=== PATIENT | female | born 1965 ===

== ENCOUNTER → 2017-02-17 | Outpatient (CLI) | payer SELFPAY | LOC: LAB SHORT 16:30 | DX: R35.0 Frequency of micturition (principal) | CPT/HCPCS: 87077; 87086; 87186 ==

== ENCOUNTER → 2019-12-07 | Outpatient (CLI) | payer SELFPAY | END | disposition home or self-care (01) | LOC: LAB 11:20 → LAB SHORT 11:20 | DX: N39.0 Urinary tract infection, site not specified (principal) | CPT/HCPCS: 87086 ==

== ENCOUNTER → 2021-08-08 | Outpatient (CLI) | payer OTHER | END | disposition home or self-care (01) | LOC: LAB 11:30 → LAB SHORT 11:30 | DX: N39.0 Urinary tract infection, site not specified (principal) | CPT/HCPCS: 87077; 87086; 87186 ==

== ENCOUNTER 2022-01-23 09:59 | Day surgery (SDC) | payer OTHER ==
[~2022-01-23] VITALS: Ht 162.6 cm; Wt 50.2 kg
[2022-01-23] MEDS ORDERED: BUPROPION XL450 MG (10:20)
[2022-01-23] MEDS ORDERED: ONDA4ODT (10:20)
[2022-01-23] MEDS ORDERED: RIZATRIPTAN5 M1 (10:21)
[2022-01-23] MEDS ORDERED: ACYCLOVIR5 GM (10:21)
== END 2022-01-23 13:07 | disposition home or self-care (01) ==
LOC: ORSCSDS 09:59
PROVIDERS: Internal Medicine Gastroenterology
PROC: 0DBP8ZX Excision of Rectum, Via Natural or Artificial Opening Endoscopic, Diagnostic (ICD-10-PCS; principal; 2022-01-23 11:15)
PROC: 0DBL8ZX Excision of Transverse Colon, Via Natural or Artificial Opening Endoscopic, Diagnostic (ICD-10-PCS; principal; 2022-01-23 11:15)
DX: Z12.11 Encounter for screening for malignant neoplasm of colon (principal); D12.3 Benign neoplasm of transverse colon; D12.8 Benign neoplasm of rectum
CPT/HCPCS: 88305; J2704; J7120